=== PATIENT | male | born 1970 | race Caucasian/White ===

== ENCOUNTER 2024-07-13 21:09 | Emergency (ER) | payer BC, SELFPAY ==
[2024-07-13] VITALS (7 sets, daily range): BP systolic 88–101; BP diastolic 56–67; BMI 31.2
[2024-07-13 21:21] LABS: Glucose - Point of Care 105 mg/dl (70-99)
--- NOTE | 2024-07-13 21:21 | ED.GENMED ---
History of Present Illness
General
Chief Complaint: Fainting/Passed Out
Time Seen by Provider: 07/13/24 21:18
History of Present Illness
History of Present Illness:
Patient is a 54-year-old man presenting to the emergency department a syncopal event. Patient states that he had THC as well as wine he was out for dinner. While he was eating he became nauseous and then became lightheaded dizzy diaphoretic and
developed blurry vision. Family laid him to the ground. He did not lose consciousness. No seizure-like activity. He did not hit his head. Upon medics arrival he did have positive orthostatics. He initially was bradycardic and hypotensive so
they did give atropine which improved his heart rate. They then started to give him fluids. He did receive a total of 200 mL with improvement in his blood pressure to systolics in the 70s. Patient states that since he received the fluids he does
feel much better. He does state that he only had a glass of water today. He does note that the last time he passed out it was at the same restaurant when the same symptoms happen. He believes that it is combination of the THC and alcohol which he
is only done these 2 times. He denies any chest pain shortness of breath headache numbness tingling weakness. No family history of cardiac arrhythmia.
Past History
Past History
ED Past Medical History: Other (diagnosed with essential tremors both hands years ago; Gilbert syndrome, arthritis)
ED Past Surgical History: None and Other (Umbilical hernia repair November 2018)
Social History
Tobacco: Non-smoker
Alcohol: Daily (Near daily alcohol intake)
Personal:
Living: with family
Employment: Employed (corporate associate attorney)
Family History
Family History: Other (Noncontributory)
Phy Exam
Physical Exam
Physical Exam:
GENERAL: in no acute distress
HEENT: normocephalic, extraocular movements intact, moist oral mucosa
NECK: normal inspection
RESPIRATORY: no respiratory distress, clear to auscultation bilaterally
CARDIOVASCULAR: regular rate and rhythm
ABDOMEN/: soft, non-distended, non-tender to palpation, no rebound or guarding
EXTREMITIES: non-tender, no edema/swelling
NEUROLOGIC: awake and alert, moves all extremities
SKIN: warm
Course
Orders/Labs/Results
Orders:
Orders
07/13/24 21:13
EKG [Electrocardiogram (*1)] Urgent
Reason for Study: Syncope
EKG- Treatment ONCE
07/13/24 21:23
Complete Blood Count/No Diff Urgent
Comprehensive Metabolic Panel Urgent
07/13/24 22:52
0.9% Sodium Chloride 1000 ml [Nss] 1,000 ml IV BOLUS
Abnormal Lab Results
07/13/24 07/13/24
21:15 21:23
RBC 4.55 L 10^6/uL
(4.70-6.10)
MCH 32.3 H pg
(27.0-31.0)
MCHC 37.2 H g/dL
(33.0-37.0)
MPV 11.0 H fL
(7.4-10.4)
Chloride 111 H mmol/L
(98-107)
BUN 8 L mg/dl
(9-20)
Glucose 104 H mg/dl
(70-99)
Total Bilirubin 2.5 H mg/dl
(0.2-1.3)
Alkaline Phosphatase 34 L U/L
(38-126)
POC Glucose 105 H mg/dl
(70-99)
07/13/24 21:23
07/13/24 21:23
Vital Signs
Initial and Last Documented VS:
Initial Vital Signs
Temp Pulse Resp BP Pulse Ox
97.6 F 85 16 88/56 95
07/13/24 21:14 07/13/24 21:14 07/13/24 21:14 07/13/24 21:14 07/13/24 21:14
Last Documented Vital Signs
Temp Pulse Resp BP Pulse Ox
97.6 F 71 19 105/63 96
07/13/24 21:14 07/14/24 00:45 07/14/24 00:45 07/14/24 00:40 07/14/24 00:45
MDM/Problems Addressed
Differential Diagnosis Includes:
Patient is a 54-year-old male presenting to the emergency department with a syncopal event. On arrival patient's initial blood pressure was 80/56 and exam was reassuring. Differential consists of orthostatic versus vasovagal syncope. History and
exam not consistent with cardiac arrhythmia. Will give IV fluids check blood work and EKG.
*Critical Care Note
Total Time (30-74mins, 75-104mins- exclusive of procedures): Not Applicable
Update Note
Update Note:
EKG per my interpretation normal sinus rhythm. His blood pressure is slowly starting to improve with IV fluids.
On reevaluation patient ambulatory without any symptoms. He states that he would like to go home and sleep. Repeat blood pressure is 105/63. Patient is unsure what his blood pressure runs that. However he is asymptomatic. He is afebrile with
normal white count. He appears overall very well so unlikely to be sepsis or cardiogenic. I did discuss admission for observation given the low blood pressure though patient is completely asymptomatic so he opted for discharge which is appropriate.
He will check his blood pressure in the morning. Strict return precautions given. He will also have electrolyte water given the component of dehydration.
ED Attending Note
-
Portions of this chart may have been created with voice recognition software.� Occasional wrong word or��sound alike� substitutions may have occurred due to the inherent limitations of voice recognition software.
Discharge Plan
Departure
Patient Disposition: Home (Routine Discharge)
Date of Disposition: 07/14/24
Time of Disposition: 01:01
Patient with high blood pressure during this ER visit?: No
Discharge Problem:
Syncope
Instructions: Syncope (Fainting) (DC)
Prescriptions:
No Action
No Current Medications
0
Referrals:
Rob Low CRNP [Family Provider] -
Activity Restrictions/Additional Instructions:
You were seen in the Emergency Department today for syncope. While you were here we performed blood work, which was reassuring. Please make sure you also follow-up with your outside sales consultant for further evaluation. Please check your blood pressure as
well and drink electrolyte fluids tomorrow. Please come back to the emergency department if you start to feel symptoms such as lightheadedness dizziness or have persistently low blood pressure as discussed
We would like for you to follow up with your primary care physician for further evaluation. If you experience fever, worsening of your symptoms, or develop any other new or concerning symptoms, please return to the Emergency Department immediately.
Please see the attached sheet for additional information.
Interventions
Interventions:
*Risk Screen - Suicide Last Done: 07/13/24 21:14
*General Assessment Last Done: 07/13/24 21:14
*Neglect/Abuse Screening Last Done: 07/13/24 21:14
*ED- Fall Risk Assessment Last Done: 07/13/24 21:14
*ED COVID-19 Vaccine History Last Done: 07/13/24 21:21
ED- Cardiac Assessment Last Done: 07/13/24 21:22
ED- Neurological Assessment Last Done: 07/13/24 21:22
Discharge Date and Time
Print Language: [id number]
[2024-07-13 21:36] LABS: Hematocrit 39.5 % (39.0-52.0); Hemoglobin 14.7 g/dL (13.0-18.0); Mean Corp Hgb Conc. 37.2 g/dL (33.0-37.0); Mean Corpuscular Hgb 32.3 pg (27.0-31.0); Mean Corpuscular Volume 86.8 fL (80.0-94.0); Platelet Count 246 10^3/uL (130-400); Red Blood Cell Count 4.55 10^6/uL (4.70-6.10); Red Cell Dist. Width 12.7 % (11.5-14.5); White Blood Cell Count 8.8 10^3/uL (4.8-10.8)
[2024-07-13 21:53] LABS: ALT (SGPT) 22 U/L (0-50); AST (SGOT) 25 U/L (17-59); Albumin 4.1 g/dl (3.5-5.0); Alkaline Phosphatase 34 U/L (38-126); Blood Urea Nitrogen 8 mg/dl (9-20); Calcium 8.8 mg/dl (8.4-10.2); Carbon Dioxide 23 mmol/L (22-30); Chloride 111 mmol/L (98-107); Estimated Creatinine Clearance 95 ml/min; Glucose 104 mg/dl (70-99); Potassium 4.1 mmol/L (3.5-5.1); Sodium 139 mmol/L (135-145); Total Bilirubin 2.5 mg/dl (0.2-1.3); Total Protein 7.3 g/dl (6.3-8.2); eGFR > 60.00
[2024-07-13] MEDS: NSS 1000 IV (22:52)
[2024-07-14] VITALS (7 sets, daily range): BP systolic 94–109; BP diastolic 53–75
== END 2024-07-14 01:16 | disposition home or self-care (01) ==
LOC: EMR 21:09
PROVIDERS: EMERGENCY PHYSICIAN Student in an Organized Health Care Education/Training Program; FAMILY PHYSICIAN Nurse Practitioner Family
DX: R55 Syncope and collapse (principal)
CPT/HCPCS: 99284; 96360; 80053; 82962; 85027; 93005

== ENCOUNTER → 2024-08-23 10:12 | Outpatient (REF) | payer BC, SELFPAY | LOC: RCS 10:12 | PROVIDERS: ATTENDING PHYSICIAN Physician Assistant; FAMILY PHYSICIAN Nurse Practitioner Family | DX: R55 Syncope and collapse (principal) | CPT/HCPCS: 93306 ==

== ENCOUNTER → 2024-10-11 12:44 | Outpatient (REF) | payer BC, SELFPAY | LOC: PAVMRI 12:44 | PROVIDERS: ATTENDING PHYSICIAN Nurse Practitioner Family | DX: R55 Syncope and collapse (principal) | CPT/HCPCS: 70546; 70549; 70553; A9585 ==

== ENCOUNTER → 2024-12-04 09:56 | Outpatient (REF) | payer BC, SELFPAY | LOC: RCS 09:56 | PROVIDERS: ATTENDING PHYSICIAN Internal Medicine Cardiovascular Disease; FAMILY PHYSICIAN Family Medicine | DX: R07.89 Other chest pain (principal) | CPT/HCPCS: 93017; 93350 ==